=== PATIENT | female | born 1945 | race Caucasian/White ===

== ENCOUNTER 2020-12-14 06:28 | Inpatient (IN) | payer OTHER ==
[~2020-12-14] VITALS: Ht 157.5 cm; Wt 75.6 kg
[~2020-12-14 06:28] MED LIST: ACET300T2 PO; ATOR20TA PO; CETI-175 PO; CHOL20007 PO; COEN150C4 PO; CYAN500L3 PO; ESTR2TAB PO; FLUO1TAB3 PO; KEP500T PO; MAGN400T40 PO; POTA1080 PO; TRAZ100T3 PO; TURM500C PO; [UNRECOGNIZED DRUG - CODE] PO; [UNRECOGNIZED DRUG - CODE] PO; [UNRECOGNIZED DRUG - CODE] PO
[2020-12-14] MEDS ORDERED: ceFAZolin 1GM/50ML 100 ML IV ONE (07:00)
[2020-12-14] MEDS ORDERED: TRANEXAMIC ACID 20 ML ONE (07:05)
[2020-12-14] MEDS: BUPIVACAINE 0.25% INJ 50ML VIAL ONE ×2 (07:05→10:40)
[2020-12-14] MEDS ORDERED: EPINEPHrine HCL 1 MG/1 ML AMP ONE (07:07)
[2020-12-14] MEDS ORDERED: MORPHINE SULF(PF) 0.5MG/ML 10ML VIAL ONE (07:17)
[2020-12-14] MEDS ORDERED: KETOROLAC TROMETH 30 MG/ML 1ML VIAL ONE (07:17)
[2020-12-14] MEDS ORDERED: ROPIVACAINE 0.5% (5MG/ML) 20ML AMPULE IJ ONE (07:19)
[2020-12-14] MEDS ORDERED: VANCOMYCIN HCL 1000 MG VL ONE (07:23)
[2020-12-14] MEDS ORDERED: fentaNYL CITRATE 100 MCG/2 ML VL ONE (07:29)
[2020-12-14] MEDS ORDERED: HYDROmorphone HCL 2 MG/ML VL ONE ×2 (07:29→11:27)
[2020-12-14] MEDS ORDERED: fentaNYL CITRATE 5 ML ONE (07:30)
[2020-12-14] MEDS ORDERED: MIDAZOLAM HCL 1MG/1ML-2 ML VIAL ONE ×2 (07:30→08:46)
[2020-12-14] MEDS ORDERED: SUCCINYLCHOLINE CHLORIDE 20 MG/ML 10ML VIAL IV ONE (07:33)
[2020-12-14] MEDS ORDERED: ETOMIDATE (2MG/ML) 20ML VIAL IV ONE (07:54)
[2020-12-14] MEDS ORDERED: LABETALOL HCL 5 MG/ML 4ML SYRINGE IV PRN (08:45)
[2020-12-14] MEDS ORDERED: ePHEDrine SULFATE 50 MG/ML AMP IV PRN (08:45)
[2020-12-14] MEDS ORDERED: ONDANSETRON HCL 4 MG/2 ML VIAL IV PRN ×2 (08:45→11:00)
[2020-12-14] MEDS ORDERED: MORPHINE SULFATE 4 MG/ML SYR/VIAL IV PRN (08:45)
[2020-12-14] MEDS ORDERED: MIDAZOLAM HCL 1MG/1ML-2 ML VIAL IV PRN (08:45)
[2020-12-14] MEDS ORDERED: HYDROmorphone HCL 2 MG/ML VL IV PRN (08:45)
[2020-12-14] MEDS ORDERED: hydrALAZINE HCL 20 MG/ML VL IV PRN (08:45)
[2020-12-14] MEDS ORDERED: ONDANSETRON HCL 4 MG/2 ML VIAL ONE (09:14)
[2020-12-14] MEDS ORDERED: NITROGLYCERIN 0.4 MG SL TAB SL PRN (11:00)
[2020-12-14] MEDS ORDERED: MORPHINE SULF INJ 2 MG/ML SYRINGE 1ML IV PRN (11:00)
[2020-12-14] MEDS: LACTATED RINGER'S 1,000 ML IV SCH ×2 (11:24→15:05)
[2020-12-14] MEDS: ceFAZolin 1GM/50ML 50 ML IV SCH ×2 (15:00→17:50)
[2020-12-14 16:22] VITALS: BP 141/79
[2020-12-14] MEDS: HYDROcodone-ACET 5/325MG TAB PO PRN (18:00)
[2020-12-14] MEDS: HYDROmorphone HCL 2 MG/ML VL IV PRN (19:55)
[2020-12-14] MEDS: DOCUSATE SOD 100 MG CAP PO SCH (21:15)
[2020-12-14 22:00] VITALS: BP 127/82
[2020-12-14] MEDS ORDERED: TRAZODONE PO PRN (22:00)
[2020-12-15] MEDS: ceFAZolin 1GM/50ML 50 ML IV SCH (01:13)
[2020-12-15] MEDS: HYDROcodone-ACET 5/325MG TAB PO PRN ×3 (02:01→10:01)
[2020-12-15 05:00] VITALS: BP 120/73
[2020-12-15 05:49] LABS: Basophils # (auto) 0 10 ^3/uL (0-0.2); Basophils % (auto) 0.2 % (0.0-2.0); Eosinophils # (auto) 0 10 ^3/uL (0-0.8); Eosinophils % (auto) 0.1 % (0.0-7.0); Hematocrit 33.5 % (36.0-46.0); Hemoglobin 11.6 g/dL (12.2-16.2); Lymphocytes # (auto) 1.1 10 ^3/uL (0.4-5.4); Lymphocytes % (auto) 14.1 % (10.0-50.0); Mean Corpuscular Hemoglobin 31.5 pg (28.0-32.0); Mean Corpuscular Hgb Conc. 34.5 g/dL (32.0-36.0); Mean Corpuscular Volume 91.1 fL (80.0-100.0); Monocytes # (auto) 0.9 10 ^3/uL (0-1.3); Monocytes % (auto) 11.9 % (0.0-12.0); Neutrophils # (auto) 5.6 10 ^3/uL (1.6-8.6); Neutrophils % (auto) 73.7 % (37.0-80.0); Red Blood Cells 3.68 10^6/uL (4.0-5.20); Red Cell Distribution Width 14.3 % (11.8-14.3); White Blood Cell 7.6 10^3/uL (4.4-10.8)
[2020-12-15 06:11] LABS: Calcium 7.8 mg/dL (8.5-10.1)
[2020-12-15] MEDS: LACTATED RINGER'S 1,000 ML IV SCH (07:00)
[2020-12-15 09:00] VITALS: BP 129/75
[2020-12-15] MEDS ORDERED: ESTRADIOL 1 MG TAB PO SCH (10:00)
[2020-12-15] MEDS ORDERED: POTASSIUM CITRATE PO SCH (10:00)
[2020-12-15] MEDS ORDERED: ESTRADIOL 0.5 MG PO SCH (10:00)
[2020-12-15] MEDS ORDERED: PATIENTS OWN MEDICATION (Fluoxetine Hcl 20 MG) PO SCH (10:00)
[2020-12-15] MEDS ORDERED: FLUoxetine HCL 20 MG CAP PO SCH (10:00)
[2020-12-15] MEDS ORDERED: levETIRAcetam 500 MG TAB PO SCH (10:00)
[2020-12-15] MEDS ORDERED: ATORVASTATIN 20 MG TAB PO SCH (10:00)
[2020-12-15] MEDS: DOCUSATE SOD 100 MG CAP PO SCH (10:03)
[2020-12-15 12:49] VITALS: BP 129/75
[2020-12-15 13:00] VITALS: BP 146/76
[2020-12-15] MEDS: HYDROmorphone HCL 2 MG/ML VL IV PRN (13:18)
[2020-12-15] MEDS ORDERED: ASPirin 81 mg TAB PO SCH (22:00)
== END 2020-12-15 16:00 | disposition home or self-care (01) | DRG 483 ==
LOC: SUR 06:28 → OVERFLOW 10:47 → WEST WING 15:40
PROVIDERS: ADMIT Orthopaedic Surgery Sports Medicine; ATTEND Orthopaedic Surgery Sports Medicine
PROC: 0RRJ00Z Replacement of Right Shoulder Joint with Reverse Ball and Socket Synthetic Substitute, Open Approach (ICD-10-PCS; 2020-12-14)
PROC: 3E0T3BZ Introduction of Anesthetic Agent into Peripheral Nerves and Plexi, Percutaneous Approach (ICD-10-PCS; principal; 2020-12-14 07:44)
DX: M19.011 Primary osteoarthritis, right shoulder (principal); M75.121 Complete rotator cuff tear or rupture of right shoulder, not specified as traumatic; M65.9 Synovitis and tenosynovitis, unspecified; G89.29 Other chronic pain; Z20.822 Contact with and (suspected) exposure to COVID-19
CPT/HCPCS: 36415; 73020; 76000; 80048; 85025; 86850; 86900; 86901; 97163; G0378; J0171; J0330; J0690; J1885; J2250; J2405; J3490